=== PATIENT | female | born 1955 | race Caucasian/White ===

== ENCOUNTER 2022-03-22 09:14 | Day surgery (SDC) | payer MEDICARE, BC ==
[~2022-03-22] VITALS: Ht 162.6 cm; Wt 64.5 kg
[2022-03-22 09:28] VITALS: BP 146/72
[2022-03-22] MEDS ORDERED: VIT D3 PO (09:46)
[2022-03-22] MEDS ORDERED: ATOR10TA PO (09:46)
[2022-03-22] MEDS ORDERED: VIT E PO (09:46)
[2022-03-22] MEDS ORDERED: ASCORBIC ACID PO (09:46)
[2022-03-22] MEDS ORDERED: IRON PO (09:46)
[2022-03-22] MEDS ORDERED: MULT-1085 PO (09:46)
[2022-03-22] MEDS ORDERED: FENTANYL CITRATE/PF 50 MCG/1 ML VIAL ONE (10:12)
[2022-03-22] MEDS ORDERED: LIDOcaine Viscous 15ml cup ONE (10:12)
[2022-03-22] MEDS ORDERED: MIDAZolam 1 MG/ML 5ML VIAL ONE (10:12)
[2022-03-22 10:45] VITALS: BP 116/70
[2022-03-22 10:55] VITALS: BP 105/64
[2022-03-22 11:05] VITALS: BP 114/64
[2022-03-22 11:15] VITALS: BP 114/65
== END 2022-03-22 11:35 | disposition home or self-care (01) ==
LOC: GI LAB 09:14
PROVIDERS: ATTEND Internal Medicine Gastroenterology
DX: K21.00 Gastro-esophageal reflux disease with esophagitis, without bleeding (principal); K44.9 Diaphragmatic hernia without obstruction or gangrene; K31.7 Polyp of stomach and duodenum; Z79.899 Other long term (current) drug therapy; K29.50 Unspecified chronic gastritis without bleeding; Z98.890 Other specified postprocedural states
CPT/HCPCS: 43239; G0500; J2250; J3010; J7030; Z7512; 88305; 88342; 99152; A4620